=== PATIENT | male | born 1995 | race Caucasian/White ===

== ENCOUNTER 2019-05-30 02:50 | Emergency (ER) | payer BC, OTHER ==
[~2019-05-30] VITALS: Ht 188 cm; Wt 93.0 kg
[2019-05-30 03:43] LABS: ABSOLUTE EOSINOPHILS 0.1 thou/uL (0.0-0.7); ABSOLUTE LYMPHOCYTES 2.1 thou/uL (0.8-5.3); ABSOLUTE MONOCYTES 0.7 thou/uL (0.0-1.2); ABSOLUTE NEUTROPHILS 5.7 thou/uL (1.6-8.1); BASOPHILS 0.5 %; EOSINOPHILS 1.3 %; HEMOGLOBIN 14.4 gm/dL (14.0-18.0); LYMPHOCYTES 23.9 %; MCH 33.1 pg (26.0-34.0); MCV 94.4 fL (80.0-100.0); MPV 6.1 fl. (7.2-11.1); NUCLEATED RBCS 0 /100WBC; PLATELET COUNT* 378 thou/uL (150-400); POLYS 66.3 %; RBC 4.34 mil/uL (4.50-6.00); RDW-CV 11.8 % (10.5-14.5); WBC 8.6 thou/uL (4.0-11.0)
[2019-05-30 04:32] LABS: CALCIUM 8.7 mg/dL (8.5-10.1); POTASSIUM 3.8 mmol/L (3.5-5.1)
[2019-05-30 04:37] LABS: TOTAL BILIRUBIN 0.2 mg/dL (<0.1-1.0)
[2019-05-30] MEDS ORDERED: PEPCID20 MG PO (04:39)
[2019-05-30] MEDS ORDERED: ZOFRAN ODT4 MG PO (05:03)
[2019-05-30 05:07] VITALS: BP 140/70
== END 2019-05-30 05:08 | disposition home or self-care (01) ==
LOC: M.ERS 02:50
PROVIDERS: Emergency Medicine
DX: E16.2 Hypoglycemia, unspecified (principal); J45.909 Unspecified asthma, uncomplicated